=== PATIENT | male | born 1970 | race Caucasian/White ===

== ENCOUNTER 2018-02-19 11:23 | Inpatient (IN) | payer BC, OTHER ==
[2018-02-19 12:06] LABS: Absolute Lymphocytes (CBC) 0.4 K/uL (0.7-4.9); Absolute Monocytes 0.4 K/uL (0.1-1.3); Absolute Neutrophil 3.2 K/uL (1.8-8.0); Basophils % 0.9 % (0-1.3); Hematocrit 47.9 % (39.6-49.0); MCH 31.9 pg (27.0-35.0); MCV 90.4 fL (80-100); Monocytes % 9.9 % (3.3-12.3); RBC Red Blood Cell Count 5.29 M/uL (4.33-5.43)
[2018-02-19] MEDS ORDERED: MORPHINE 4 MG/ML SYR ONE (12:08)
[2018-02-19 12:28] LABS: BUN Blood Urea Nitrogen 19 mg/dL (7-18); Bicarbonate 30 mmol/L (21-32); Glucose Level 101 mg/dL (74-106); NT PRO-BNP 43 pg/mL (<125); Potassium 4.5 mmol/L (3.5-5.1); Protime INR 0.96; Sodium Level 138 mmol/L (136-145); Troponin (Emerg Dept Use Only) < 0.02 ng/mL (0.0-0.045)
--- NOTE | 2018-02-19 12:41 | RAD REPORT ---
EXAM DESCRIPTION: Jose Robertot Single View02/19/2018 12:20 pm CLINICAL HISTORY: Chest pain COMPARISON: 2011 FINDINGS: Area of scarring is present within the mid right lung. The lungs appear clear of acute infiltrate. The heart is normal size IMPRESSION: No acute abnormalities displayed
--- NOTE | 2018-02-19 13:10 | RAD REPORT ---
EXAM DESCRIPTION: CT - Angio Aorta For Dissection - 02/19/2018 12:45 pm CLINICAL HISTORY: Left-sided chest pain COMPARISON: Chest films same date TECHNIQUE: Dynamically enhanced 3 mm thick images of the chest, abdomen, and upper pelvis were obtai christy during administration of approximately 150mL Isovue 370 IV contrast. Sagittal and coronal reconst ruction images were generated using MIP and reviewed. Exam utilizes a protocol to evaluate entire cou rse of the aorta. All CT scans are performed using dose optimization technique as appropriate and may include automated exposure control or mA/KV adjustment according to patient size. FINDINGS: Aorta is normal in diameter with no dissection or other acute aortic findings. Reconstruct ion images show no significant findings. Pulmonary arteries are normal as well. No cardiomegaly, pericardial thickening or pericardial effusio n. In the central portion of the left upper lobe there is a 2.5 centimeter area of spiculated parenchyma with stranding extending to the left hilum and to the left side mediastinal pleura where there is te nting present. Spiculated parenchyma extends inferiorly towards the lingula with continued tenting al lily the left-side mediastinal pleura. Patient has several areas of smaller irregular or spiculated pa renchyma in the inferior aspect of the left lower lobe. Right lower lobe is clear. There is a 3 centi meter x 1.5 centimeter area of irregular parenchyma radiating from the hilum into the right middle lo be along the fissure. Several areas of similar irregular or spiculated parenchyma seen along the manuela r fissure in the right upper lobe. These extend towards the right hilum. No pleural thickening, pleur al effusion or pneumothorax. Irregular soft tissue is seen surrounding the right hilar vascular and bronchial structures. This sof t tissue extends into the mediastinum. There is a 4.1 x 2.7 centimeter subcarinal soft tissue mass. M ultiple 10-18 millimeter lymph nodes are seen in the AP window and retrocaval-pretracheal space. Ther e are abnormal lymph nodes extending superiorly from the left hilum along the left lateral margin of the aorta. The liver, spleen, pancreas, gallbladder, kidneys and adrenal glands show no suspicious findings. No biliary tree dilatation. Celiac, SMA and renal arteries show no suspicious findings. Several small lymph nodes are present ken ng the gastrohepatic ligament and a few small periaortic/ pericaval lymph nodes seen. A few small per ipancreatic lymph nodes are present. These are all nonspecific. No free air, free fluid or inflammato ry stranding. No urinary bladder abnormality. Prostate gland and seminal vesicles are normal. The pa tient has a normal variant duplicated IVC below the renal vasculature. No acute bone finding. IMPRESSION: Negative CT scan of the aorta. Patient has an unusual presentation of multiple spiculated soft tissue masses scattered throughout mu ltiple lobes as well as abnormal mediastinal and hilar mass/ lymphadenopathy. A few small lymph nodes are seen in the gastrohepatic ligament region, peripancreatic region and tanja g the aorta. These are less conspicuous than the chest findings that are nonspecific. Chest findings are unusual in presentation. Findings could reflect an unusual or atypical pneumonia p resentation with reactive lymphadenopathy. The possibility of a multifocal malignant process with abn ormal mediastinal lymphadenopathy would be a consideration even at the patient's relatively young age .
--- NOTE | 2018-02-19 13:51 | ER ---
Nurse's Notes [facility] Name: Percy Dorsey Age: 48 yrs Sex: Male : 1970 Arrival Date: 02/19/2018 Time: 11:25 Bed 27 Private MD: Diagnosis: Chest pain, unspecified Presentation: 02/19 11:34 Presenting complaint: Patient states: Sudden onset of L sided chest pain while sitting ph in traffic yesterday, reports that pain lessened slightly overnight but was still there this morning, describes as constant, sharp, stabbing, radiates to back. Also reports nausea, dizziness, numbness to natan hands and L side of face, denies SOB or palpitations. Transition of care: patient was not received from another setting of care. Onset of symptoms was February 19, 2018. Risk Assessment: Do you want to hurt yourself or someone else? Patient reports no desire to harm self or others. Initial Sepsis Screen: Does the patient meet any 2 criteria? No. Patient's initial sepsis screen is negative. Does the patient have a suspected source of infection? No. Patient's initial sepsis screen is negative. Care prior to arrival: None. 11:34 Method Of Arrival: Ambulatory ph 11:34 Acuity: GIACOMO 3 ph Historical: - Allergies: 11:37 PENICILLINS; ph 11:37 Latex, Natural Rubber; ph - PMHx: 11:37 Hypertension; ph - Immunization history:: Adult Immunizations up to date. - Family history:: not pertinent. - Social history:: Smoking status: Patient/guardian denies using tobacco. - Ebola Screening: : No symptoms or risks identified at this time. - Hospitalizations: : No recent hospitalization is reported. Screenin:45 Abuse screen: Denies threats or abuse. Denies injuries from another. Nutritional ed1 screening: No deficits noted. Tuberculosis screening: No symptoms or risk factors identified. Fall Risk None identified. Assessment: 11:45 General: Appears uncomfortable, Behavior is calm, cooperative. Pain: Complains of pain ed1 in chest Pain radiates to left shoulder Pain currently is 6 out of 10 on a pain scale. Quality of pain is described as sharp, Pain began 1 day ago. Is continuous. Neuro: Level of Consciousness is awake, alert, obeys commands, Oriented to person, place, time, situation, Reports numbness in right hand Denies weakness blurred vision dizziness, headache. Cardiovascular: Reports chest pain, Heart tones S1 S2 present. Respiratory: Airway is patent Respiratory effort is even, unlabored, Respiratory pattern is regular, symmetrical, Breath sounds are clear bilaterally. GI: Patient currently denies diarrhea, nausea, vomiting. : No signs and/or symptoms were reported regarding the genitourinary system. EENT: No signs and/or symptoms were reported regarding the EENT system. Derm: Skin is intact, is healthy with good turgor, Skin is dry, Skin is normal, Skin temperature is warm. Musculoskeletal: Circulation, motion, and sensation intact. Capillary refill < 3 seconds, in bilateral fingers. Range of motion: intact in all extremities, Swelling absent. 11:47 General: I agree with above assessment by Marla Lagos LVN. ph 12:53 Reassessment: Patient appears in no apparent distress at this time. Patient and/or ed1 family updated on plan of care and expected duration. Pain level reassessed. Patient is alert, oriented x 3, equal unlabored respirations, skin warm/dry/pink. Patient states symptoms have not improved. Pain: Complains of pain in chest. 13:06 Reassessment: Pt reports coldness and purple coloring to finger tips. Dr. St ed1 notified. No new orders received. Cardiovascular: Capillary refill < 3 seconds in bilateral fingers Clubbing of nail beds is absent Patient's skin is warm and dry. 13:42 Reassessment: No changes from previously documented assessment. Patient and/or family ed1 updated on plan of care and expected duration. Pain level reassessed. Patient is alert, oriented x 3, equal unlabored respirations, skin warm/dry/pink. Patient states symptoms have not improved. 14:26 Reassessment: Pt reports anxiety. Pt states "I am just nervous about what the doctor ed1 told me. Do you think I can get something for that?" Dr. St notified. No orders received at this time. Vital Signs: 11:38 BP 168 / 103; Pulse 95; Resp 16; Temp 98.4; Pulse Ox 99% on R/A; ph 12:53 BP 133 / 97; Pulse 81; Resp 13; Pulse Ox 100% on R/A; Pain 6/10; ed1 13:42 BP 146 / 82; Pulse 68; Resp 14; Temp 98.1(O); Pulse Ox 99% on R/A; Pain 6/10; ed1 14:28 BP 144 / 85; Pulse 75; Resp 16; Pulse Ox 100% on R/A; Pain 6/10; ed1 15:30 BP 128 / 87; Pulse 80; Resp 18; Pulse Ox 100% on R/A; mg2 ED Course: 11:25 Patient arrived in ED. ph 11:[address] MD is Attending Physician. rn 11:37 Triage completed. ph 11:38 Arm band placed on Patient placed in an exam room, on a stretcher, in view of staff ph members, on surveillance system monitor, on pulse oximetry. 11:45 Paradise Lagos LVN is Primary Nurse. ed1 11:45 Patient has correct armband on for positive identification. Placed in gown. Bed in low ed1 position. Call light in reach. Side rails up X 1. secured entrance monitor on. Pulse ox on. NIBP on. Warm blanket given. 11:47 EKG done, by field map technician. reviewed by Messi St MD. at1 12:01 Initial lab(s) drawn, by mn, sent to lab. Inserted saline lock: 20 gauge in right ed1 antecubital area, using aseptic technique. Blood collected. 12:19 X-ray completed. Portable x-ray completed in exam room. Patient tolerated procedure ag1 well. 12:19 XRAY Chest (1 view) In Process Unspecified. EDMS 12:48 CT Aorta for Dissection In Process Unspecified. EDMS 13:50 Gary Lombardi MD is Hospitalizing Provider. rn 14:28 Appears restless. Awaiting bed assignment. ed1 15:39 No provider procedures requiring assistance completed. Patient admitted, IV remains in mg2 place. Administered Medications: 12:02 Drug: morphine 4 mg Route: IVP; Site: right antecubital; ph 13:44 Follow up: Response: No adverse reaction; Pain is unchanged, physician notified ed1 14:02 Drug: LevaQUIN 750 mg Route: PO; ed1 14:26 Follow up: Response: No adverse reaction ed1 Outcome: 13:51 Decision to Hospitalize by Provider. rn 15:39 Admitted to Tele accompanied by tech, via wheelchair, room 430, with chart. mg2 15:39 Condition: stable 15:39 Instructed on the need for admit, Demonstrated understanding of follow-up care. 15:40 Patient left the ED. mg2 Signatures: Dispatcher [employer] EDMS Messi St MD MD rn Paradise Lagos, CLOCK REPAIR TECHNICIAN CLOCK REPAIR TECHNICIAN ed1 Vannesa Gray, paper wood cutter EKG Tat1 Eileen Tobar RN RN Sophie Valente ag1 Klever Carey RN RN mg2
--- NOTE | 2018-02-19 13:51 | EDPHYS ---
Physician Documentation [facility] Name: Percy Dorsey Age: 48 yrs Sex: Male : 1970 Arrival Date: 02/19/2018 Time: 11:25 Bed 27 Private MD: ED Physician Messi St HPI: 02/19 12:22 This 48 yrs old Male presents to ER via Ambulatory with complaints of Chest rn Pain > 30 y/o. 12:22 The patient or guardian reports chest pain that is located primarily in the substernal rn area. Onset: last night. The pain radiates to back. Associated signs and symptoms: Pertinent positives: None. Pertinent negatives: abdominal pain, cough, dizziness, headache, lightheadedness, near syncope, palpitations, recent travel, shortness of breath, syncope, vomiting. The chest pain is described as sharp, stabbing. Duration: The patient or guardian reports multiple episodes, that are intermittent. Modifying factors: The symptoms are alleviated by nothing. the symptoms are aggravated by nothing. Severity of pain: At its worst the pain was moderate in the emergency department the pain has improved. The patient has not experienced similar symptoms in the past. The patient has not recently seen a physician. Began while driving yesterday, got better overnight, returned today, also noticed tips of fingers on both hands turning bluish, now resolved. . Historical: - Allergies: 11:37 PENICILLINS; ph 11:37 Latex, Natural Rubber; ph - PMHx: 11:37 Hypertension; ph - Immunization history:: Adult Immunizations up to date. - Family history:: not pertinent. - Social history:: Smoking status: Patient/guardian denies using tobacco. - Ebola Screening: : No symptoms or risks identified at this time. - Hospitalizations: : No recent hospitalization is reported. ROS: 12:22 Constitutional: Negative for fever, chills, and weight loss, Eyes: Negative for injury, rn pain, redness, and discharge, Cardiovascular: Negative for palpitations, and edema, Respiratory: Negative for shortness of breath, cough, wheezing Abdomen/GI: Negative for abdominal pain, nausea, vomiting, diarrhea, and constipation, MS/Extremity: Negative for injury and deformity, Skin: Negative for injury, rash, and discoloration, Neuro: Negative for headache, weakness, numbness, tingling, and seizure. Exam: 12:22 Constitutional: This is a well developed, well nourished patient who is awake, alert, rn appears anxious Head/Face: Normocephalic, atraumatic. Eyes: Pupils equal round and reactive to light, extra-ocular motions intact. Lids and lashes normal. Conjunctiva and sclera are non-icteric and not injected. Cornea within normal limits. Periorbital areas with no swelling, redness, or edema. Cardiovascular: Regular rate and rhythm, No pulse deficits. Respiratory: Lungs have equal breath sounds bilaterally, clear to auscultation, No increased work of breathing, no retractions or nasal flaring. Abdomen/GI: soft, non-tender MS/ Extremity: Pulses equal, no cyanosis. Neurovascular intact. Full, normal range of motion. Equal circumference. Neuro: Awake and alert, GCS 15, oriented to person, place, time, and situation. Cranial nerves II-XII grossly intact. Motor strength 5/5 in all extremities. Sensory grossly intact. Vital Signs: 11:38 BP 168 / 103; Pulse 95; Resp 16; Temp 98.4; Pulse Ox 99% on R/A; ph 12:53 BP 133 / 97; Pulse 81; Resp 13; Pulse Ox 100% on R/A; Pain 6/10; ed1 13:42 BP 146 / 82; Pulse 68; Resp 14; Temp 98.1(O); Pulse Ox 99% on R/A; Pain 6/10; ed1 14:28 BP 144 / 85; Pulse 75; Resp 16; Pulse Ox 100% on R/A; Pain 6/10; ed1 15:30 BP 128 / 87; Pulse 80; Resp 18; Pulse Ox 100% on R/A; mg2 MDM: 11:32 Patient medically screened. rn 13:47 Differential diagnosis: anxiety, coronary artery disease chest wall pain, rn gastroesophageal reflux disease (GERD), pericarditis, pleurisy, pneumothorax, thoracic aortic disection. Data reviewed: vital signs, nurses notes, lab test result(s), EKG, radiologic studies, CT scan, plain films. 13:50 Admission orders: after a detailed discussion of the patient's condition and case, the brazing furnace feeder orders are written by me. ED course: Admitted to Dr. Lombardi for chest pain and abnormal CT chest findings. . 13:50 Counseling: I had a detailed discussion with the patient and/or guardian regarding: the rn historical points, exam findings, and any diagnostic results supporting the discharge/admit diagnosis, lab results, radiology results, the need for further work-up and treatment in the hospital. 02/19 11:38 Order name: Basic Metabolic Panel; Complete Time: 12:34 rn 02/19 11:38 Order name: CBC with Diff; Complete Time: 12:22 rn 02/19 11:38 Order name: NT PRO-BNP; Complete Time: 12:34 rn 02/19 11:38 Order name: PT-INR; Complete Time: 12:34 rn 02/19 11:38 Order name: Troponin (emerg Dept Use Only); Complete Time: 12:34 rn 02/19 11:38 Order name: D-Dimer; Complete Time: 12:34 rn 02/19 11:38 Order name: XRAY Chest (1 view); Complete Time: 13:20 rn 02/19 12:35 Order name: CT Aorta for Dissection; Complete Time: 13:20 rn 02/19 14:30 Order name: Comprehensive Metabolic Panel [facility] 02/19 14:30 Order name: Comprehensive Metabolic Panel [facility] 02/19 14:30 Order name: Comprehensive Metabolic Panel [facility] 02/19 14:30 Order name: Blood Culture [facility] 02/19 14:30 Order name: Sputum Culture [facility] 02/19 11:38 Order name: EKG; Complete Time: 11:39 rn 02/19 11:38 Order name: Cardiac monitoring; Complete Time: 12:01 02/19 11:38 Order name: EKG - Nurse/Tech; Complete Time: 12:01 rn 02/19 11:38 Order name: IV Saline Lock; Complete Time: 12:01 rn 02/19 11:38 Order name: Labs collected and sent; Complete Time: 12:01 rn 02/19 11:38 Order name: O2 Per Protocol; Complete Time: 11:45 rn 02/19 11:38 Order name: O2 Sat Monitoring; Complete Time: 11:45 rn 02/19 14:31 Order name: CONS Physician Consult [facility] 02/19 14:31 Order name: Regular EDMS Administered Medications: 12:02 Drug: morphine 4 mg Route: IVP; Site: right antecubital; ph 13:44 Follow up: Response: No adverse reaction; Pain is unchanged, physician notified ed1 14:02 Drug: LevaQUIN 750 mg Route: PO; ed1 14:26 Follow up: Response: No adverse reaction ed1 Disposition: 02/19/18 13:51 Hospitalization ordered by Gary Lombardi for Inpatient Admission. Preliminary diagnosis is Chest pain, unspecified. - Bed requested for Telemetry/MedSurg (Inpatient). - Status is Inpatient Admission. mg2 - Condition is Stable. - Problem is new. - Symptoms have improved. UTI on Admission? No Signatures: Dispatcher [employer] EDMS Galina Stanley RN RN dw Messi St MD MD rn Yolis, Paradise, DOOR TO DOOR FUNDRAISING COLLECTOR DOOR TO DOOR FUNDRAISING COLLECTOR ed1 Eileen Tobar RN MARK Klever Carey RN RN [facility] [place], Janna lt1 Corrections: (The following items were deleted from the chart) 14:49 13:51 Hospitalization Ordered by Gary Lombardi MD for Inpatient Admission. Preliminary dw diagnosis is Chest pain, unspecified. Bed requested for Telemetry/MedSurg (Inpatient). Status is Inpatient Admission. Condition is Stable. Problem is new. Symptoms have improved. UTI on Admission? No. rn 15:02 14:49 02/19/2018 13:51 Hospitalization Ordered by Gary Lombardi MD for Inpatient ed1 Admission. Preliminary diagnosis is Chest pain, unspecified. Bed requested for Telemetry/MedSurg (Inpatient). Status is Inpatient Admission. Condition is Stable. Problem is new. Symptoms have improved. UTI on Admission? No. dw 15:29 15:02 02/19/2018 13:51 Hospitalization Ordered by Gary Lombardi MD for Inpatient lt1 Admission. Preliminary diagnosis is Chest pain, unspecified. Bed requested for Telemetry/MedSurg (Inpatient). Status is Inpatient Admission. Condition is Stable. Problem is new. Symptoms have improved. UTI on Admission? No. ed1 15:40 15:29 02/19/2018 13:51 Hospitalization Ordered by Gary Lombardi MD for Inpatient mg2 Admission. Preliminary diagnosis is Chest pain, unspecified. Bed requested for Telemetry/MedSurg (Inpatient). Status is Inpatient Admission. Condition is Stable. Problem is new. Symptoms have improved. UTI on Admission? No. lt1
[2018-02-19] MEDS ORDERED: levoFLOXacin 750 MG TAB ONE (14:09)
[2018-02-19] MEDS ORDERED: ONDANSETRON 4 MG/2 ML VIAL IV PRN (14:24)
[2018-02-19] MEDS ORDERED: IPRATROPIUM BROM 0.5MG/2.5ML NEB PRN (14:24)
[2018-02-19] MEDS ORDERED: ALBUTEROL 2.5 MG/3 ML NEB SOL NEB PRN (14:24)
[2018-02-19] MEDS ORDERED: Levofloxacin 750mg IV 750 MG/150 ML BAG IV SCH (15:00)
[2018-02-19] MEDS: ACETAMINOPHEN 500 MG TAB PO PRN (15:34)
[2018-02-19] MEDS ORDERED: ACETAMINOPHEN 500 MG TAB ONE (15:36)
[2018-02-19] MEDS: NA CHLORIDE 0.9% 1,000 ML IV SCH (16:12)
[2018-02-19 16:25] VITALS: BMI 24.0
--- NOTE | 2018-02-19 17:47 | EKG ---
Test Date: 2018-02-19 Test Time: 11:47:02 Pyrotechnics Press Tender: CHUCK MEASUREMENT RESULTS: Intervals: Rate: 75 NJ: 176 QRSD: 122 QT: 392 QTc: 437 [place]: P: 60 NJ: 176 QRS: 91 T: 87 INTERPRETIVE STATEMENTS: Sinus rhythm with occasional premature ventricular complexes Nonspecific intraventricular conduction delay ST abnormality, possible digitalis effect Abnormal ECG Compared to ECG 09/05/2010 11:27:02 Ventricular premature complex(es) now present Intraventricular conduction delay now present ST (T wave) deviation now present Electronically Signed On 02-19-18 17:46:26 FITTER TYPE BAR AND SEGMENT by Georgi Garsia
[2018-02-19] MEDS: clonazePAM 0.5 MG TAB PO PRN (18:10)
[2018-02-19] MEDS ORDERED: TRAMADOL HCL 50 MG TAB PO PRN (19:18)
[2018-02-19] MEDS: TAMSULOSIN 0.4 MG SR CAP PO SCH (20:00)
[2018-02-19] MEDS: ZOLPIDEM TARTRATE 10 MG TABLET PO SCH (22:10)
[2018-02-20] MEDS: NA CHLORIDE 0.9% 1,000 ML IV SCH (01:00)
--- NOTE | 2018-02-20 04:07 | HP ---
Date of Admission: 02/19/2018 Primary Care Physician: Federico Urias D.O. Chief Complaint: Chest pain. History Of Present Illness: The patient is a 48-year-old male with past medical history of rheumatoi d arthritis, hypertension, benign prostatic hyperplasia, and previous exposure to mold and chemicals from his occupation. He comes in with sudden onset of chest tightness which was substernal, associat ed with some numbness on his right arm. Denies any shortness of breath, nausea, vomiting, fever, chi lls, cough, or sputum production. The patient's pain occurred while he was driving in traffic in [facility]. The patient took some Rolaids; however, it did not improve his symptoms. The patient got home and was able to fall asleep. However, on the day of admission, had worsening pain. Theref ore, he came in to the hospital for further evaluation. The patient's symptoms were constant, modera te, progressively worsening. Upon arrival, the patient's blood pressure was extremely high. Blood p ressure was elevated at 168/103. The patient's initial workup showed negative cardiac enzymes. EKG did not show any specific changes. No ST elevation. Due to the concern for his chest pain radiating to the back, CT angio chest was done to rule out aortic dissection. On the CT scan, there was no ao rtic dissection. However, he did have multiple spiculated soft tissue masses scattered throughout th e multiple lobes, and he also had abnormal mediastinal and hilar mass lymphadenopathy. There were di ffuse small lymph nodes seen in the gastrohepatic ligament region, peripancreatic region, and along t he aorta, which were less conspicuous in the chest findings that are nonspecific. This may be relate d to atypical pneumonia versus reactive lymphadenopathy. However, possibility of multifocal malignan t process would be a consideration. The patient was then referred for admission. When seen in the E R, the patient was awake, alert, and oriented x3. Still complaining of some pain with deep breath, f eeling anxious, asking for something for anxiety. Past Medical History: Hypertension, BPH, and rheumatoid arthritis. Surgeries: Knee surgery x7 on the right. Allergies: TO LATEX; AND CHART SHOWS ALLERGY TO PENICILLIN, UNKNOWN REACTION. Medications: List reviewed. Social History: The patient denies any alcohol use. Does smoke occasionally. Has been a heavy smok er in the past, then did not smoke for a long time. Smokes 1 cigarette every now and then. Not a re gular smoker anymore. 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 Family History: Father has hypertension and colon cancer. Mother has hypertension and ovarian cance r. Grandfather has prostate cancer. Review of Systems: An 11-point system reviewed, negative except as per HPI. Physical Examination: Vital Signs: Temperature 98.4, heart rate 95, blood pressure 168/103, respirations 16, and O2 of 99% on room air. General: Awake, alert, and oriented x3. Some mild distress due to pain. Ill-appearing male, anxiou s. HEENT: Normocephalic, atraumatic. PERRLA. EOMI. Moist mucous membranes. Oropharynx is clear. Co njunctivae are anicteric. Neck: Supple. No JVD. Trachea midline. CV: S1, S2. Regular rate and rhythm. Peripheral pulses present. No murmurs. Respiratory: Moving air well bilaterally. No wheezing or stridor. No use of accessory muscles. Gastrointestinal: Abdomen is soft, nontender, nondistended. Positive bowel sounds. No guarding or rigidity. Extremities: No clubbing, cyanosis, or edema. No calf tenderness. Neurologic: Cranial nerves 2 through 12 intact grossly. No focal neurological deficit. Speech is n ormal. Skin: No rashes. Normal skin turgor. Psychiatric: Mood is anxious. Affect is congruent with mood. Insight and judgment are good. Laboratory Data: INR 0.96. D-dimer 480. Sodium 138, potassium 4.5, chloride 104, CO2 of 30, BUN 19 , creatinine 1.2, glucose 101, calcium 8.9. Troponin less than 0.02. ProBNP 43. WBC 4.2, H and H 1 6.9 and 47.9, platelets 219, and neutrophils 77.2%. CT dissection shows unusual presentation of mult iple spiculated soft tissue masses scattered throughout multiple lobes. Abnormal mediastinal and hil ar mass, lymphadenopathy. Small lymph nodes in the gastrohepatic ligament region, peripancreatic reg ion, and along the aorta. May be from atypical pneumonia or reactive lymphadenopathy. Possible morales gnant process. Chest x-ray, personally reviewed, shows no infiltrates. Heart normal size. Assessment And Plan: A 48-year-old male with; 1.Atypical chest pain, likely pleuritic chest pain. Initial cardiac enzymes are negative. We will repeat subsequent troponin level. Doubt that this is cardiac in nature. 2.Incidental finding of multiple spiculated masses in the lung may be reactive to atypical pneumonia versus malignancy or possibly from occupational exposure. We will consult Pulmonology. As these ar e too small for biopsy, may need bronchoscopy. The patient denies any weight loss or hemoptysis. We will continue to monitor. 3.Essential hypertension, uncontrolled. We will adjust medications and resume home medications. Us e IV p.r.n. for greater than 160 systolic. 4.Rheumatoid arthritis. 5.Benign prostatic hyperplasia, on tamsulosin. 6.Gastrointestinal and deep venous thrombosis prophylaxis with PPI and SCDs. No chemical anticoagul ation in case the patient needs procedure in a.m. We will encourage ambulation. 7.Nicotine dependence with cigarette smoking. Counseled. Plan: Admit the patient to Med-Surg, place as inpatient. Length of stay greater than 2 midnights. MARTIN Voice ID: [id number]
[2018-02-20 04:54] LABS: Absolute Lymphocytes (CBC) 0.4 K/uL (0.7-4.9); Absolute Monocytes 0.4 K/uL (0.1-1.3); Absolute Neutrophil 2.5 K/uL (1.8-8.0); Basophils % 0.9 % (0-1.3); Eosinophils % 5.7 % (0-4.4); Hematocrit 44.4 % (39.6-49.0); Lymphocytes % 11.3 % (15.3-44.8); MCH 31.8 pg (27.0-35.0); MCV 90.8 fL (80-100); MPV 9.1 fL (7.6-11.3); Monocytes % 12.1 % (3.3-12.3); RBC Red Blood Cell Count 4.89 M/uL (4.33-5.43)
[2018-02-20 05:02] LABS: Albumin 3.4 g/dL (3.4-5.0); Bilirubin Total 0.4 mg/dL (0.2-1.0); Potassium 4.2 mmol/L (3.5-5.1); Protein, Total 6.3 g/dL (6.4-8.2)
--- NOTE | 2018-02-20 07:57 | P.CNS ---
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 Allergies latex Allergy (Verified 02/09/12 16:59) UNK Home Medications: Lisinopril [Prinivil*] 20 mg PO DAILY 02/09/12 Zolpidem Tartrate [Ambien*] 10 mg PO BEDTIME #30 tablet 02/16/12 Tamsulosin [Flomax] 0.4 mg PO BEDTIME 02/19/18 - Past Medical/Surgical History Diabetic: No -: RA -: HTN -: Prostate -: 7 knee sx - Social History Smoking Status: Current every day smoker Alcohol use: No CD- Drugs: No Caffeine use: Yes Place of Residence: Home Review of Systems Weight loss General: Weakness Cardiovascular: Chest Pain Physical Examination Temp Pulse Resp BP Pulse Ox 97.2 F 65 20 100/52 L 95 02/20/18 04:00 02/20/18 04:00 02/20/18 04:00 02/20/18 04:00 02/20/18 04:00 General: Alert, Oriented x3 HEENT: Atraumatic Neck: Supple Respiratory: Clear to auscultation bilaterally Cardiovascular: No edema, Regular rate/rhythm Gastrointestinal: Normal bowel sounds, Soft and benign Musculoskeletal: No clubbing, No swelling Integumentary: No rashes, No breakdown Laboratory Data (last 24 hrs) 02/19/18 11:53: PT 11.3, INR 0.96 02/19/18 11:53: WBC 4.2 L, Hgb 16.9, Hct 47.9, Plt Count 219 02/19/18 11:53: Sodium 138, Potassium 4.5, BUN 19 H, Creatinine 1.20, Glucose 101 - Problems (1) Abnormal CT scan of lung Current Visit: Yes Status: Acute Plan: Patient is 48 years of age admitted with left-sided chest pain over and a CT scan he was found to have upper low-fiber cavitary changes with mediastinal adenopathy no prior history of pulmonary complaints quite possible that he has sarcoidosis was no evidence of dissection he will require a mediastinal biopsy in view of his recent weight loss chemistries reviewed unremarkable I have ordered a thyroid function test ESR (2) Chest pain Current Visit: Yes Status: Acute Plan: Patient is 48 years of age admitted with left-sided chest discomfort atypical he will need a cardiac evaluation possibly a stress test troponins negative EKG no significant changes for ischemia Qualifiers: Chest pain type: chest pain on breathing Qualified Code(s): R07.1 - Chest pain on breathing; R07.81 - Pleurodynia
[2018-02-20] MEDS ORDERED: REGADENOSON 0.4 MG/5 ML SYR IV ONE (09:08)
--- NOTE | 2018-02-20 09:25 | CON ---
Chief Complaint: Chest pain. History Of Present Illness: Mr. Dorsey was driving home from work, developed pain in the left pecto ral region. It is worse with inspiration. There was numbness in his fingers of his left hand, espec ially the ring finger, but all of them at least somewhat. He went on to lay down, took some Tums, wo ke up, felt slightly better, but the pain was not gone, so he came to the ER, so he had had several h ours of chest pain by the time he got here. When he arrived, his chest x-ray looked abnormal with sc arring. The CT angio of the chest was done to rule out PE. There was no evidence of PE. There appe ared to be lymph nodes and spiculated masses in right lung. He does not have exertional intolerance. He has never had myocardial infarction or stroke. Medications: His outpatient medications were lisinopril, zolpidem, and Flomax. He is treated for hy pertension. Social History: He uses tobacco, sometimes heavy, sometimes 0-2 cigarettes per day. More recently, he is trying very hard to quit. His last cigarette was 2 days before admission. Review of Systems: Reveals 100 pounds weight loss over the last year. That weight loss to make an attempt to get differ ent clothing. Physical Examination: General: He appears to be his stated age of 48, 5 feet 6 inches, 149 pounds. HEENT: Normal. Lungs: Clear. No wheezes or crackles. Heart: Exam within normal limits. Abdomen: Soft. Extremities: Normal distal pulses. No cyanosis, clubbing, or edema. Laboratory Data: Reveals troponins are all less than 0.02. N-terminal proBNP is 43, well within nor mal range. Blood sugars 101 and 95. Complete blood count reveals a kind of a low white blood cell c ount. Normal hemoglobin, hematocrit, platelet count. Impression: The patient's chest pain is somewhat pleuritic sounded. I do not really think it is uns table angina. I have recommended that he stop smoking. We will do a pharmacologic nuclear stress ec ho today. Dr. Bullock has stated in his report he has a need for a mediastinal biopsy, probably a palma prasternal approach in a [facility], not something we would do here at [facility]. So ivy maciel, we will try to do the test, make sure his heart is stable enough for doing all that. I suspect th e chest pain he had was not related to an acute coronary syndrome. ANITA/MCKENNA Voice ID: [id number] Report ID: [id number]
[2018-02-20] MEDS: LISINOPRIL 20 MG TAB PO SCH (10:31)
--- NOTE | 2018-02-20 11:21 | ECHO ---
HEIGHT: 5 ft 6 in WEIGHT: 149 lb 0 oz DATE OF STUDY: 02/20/[address]: Georgi Garsia MD 2-DIMENSIONAL: YES M.MODE: YES DOPPLER: YES COLOR FLOW: YES TDS: NO PORTABLE: NO DEFINITY: NO BUBBLE STUDY: NO DIAGNOSIS: CHEST PAIN CARDIAC HISTORY: CATHERIZATION: NO SURGERY: NO PROSTHETIC VALVE: NO PACEMAKER: NO MEASUREMENTS (cm) DIASTOLIC (NORMALS) SYSTOLIC (NORMALS) IVSd 1.0 (0.6-1.2) LA Diam 2.8 (1.9-4.0) LVEF 58% LVIDd 5.1 (3.5-5.7) LVIDs 3.5 (2.0-3.5) %FS 31% LVPWd 1.0 (0.6-1.2) Ao Diam 2.9 (2.0-3.7) 2 DIMENSIONAL ASSESSMENT: RIGHT ATRIUM: NORMAL LEFT ATRIUM: NORMAL RIGHT VENTRICLE: NORMAL LEFT VENTRICLE: NORMAL TRICUSPID VALVE: NORMAL MITRAL VALVE: NORMAL PULMONIC VALVE: NORMAL AORTIC VALVE: NORMAL PERICARDIAL EFFUSION: NONE AORTIC ROOT: NORMAL LEFT VENTRICULAR WALL MOTION: NORMAL DOPPLER/COLOR FLOW: NORMAL COMMENTS: NORMAL 2D ECHOCARDIOGRAM WITH DOPPLER. TECHNOLOGIST: David SCHAFFER
--- NOTE | 2018-02-20 13:38 | TREADPHA ---
DX: CHEST PAIN Date of Study: 02/20/18 Ht: 5 6 Wt: 149 lb 0 oz Consulting Physician: YENI MEDICATIONS: TYLENOL, PRINIVIL, PROVENTIL, KLONOPIN, AMBIEN HISTORY: 48 YEAR OLD MALE WITH COMPLAINTS OF CHEST PAIN. MEDICAL HISTORY HYPERTENSION AND SMOKER PHYSICIAL EXAMINATION: RESTING B.P.: 111/67 RESTING H.R.: 70 RESTING EKG: LEFT VENTRICULAR HYPERTROPHY WITH QRS WIDENING AND REPOLARIZATION ABNORMALITY. PROTOCOL: LEXISCAN EXERCISE TIME: 3:30 B.P. AT PEAK STRESS: 101/72 IMPRESSION: LEXISCAN INJECTED, CARDIOLITE INJECTED PER PROTOCOL. SEE NUCLEAR MEDICINE REPORT. NO SUPRA VENTRICULAR TACHYCARDIA, NO VENTRICULAR TACHYCARDIA. PREMATURE VENTRICULAR COMPELXES FREQUENT PRE TEST. OCCASIONAL PREMATURE VENTRICULAR COMPLEXES POST. NON DIAGNOSTIC EKG WITH LEXISCAN STRESS.
--- NOTE | 2018-02-20 13:49 | RAD REPORT ---
EXAM DESCRIPTION: NM - Rest Stress Cardiac Imaging - 02/20/2018 1:41 pm CLINICAL HISTORY: CP Chest pain. COMPARISON: No comparisons TECHNIQUE: The patient was administered approximately 10mCi of Tc 99m Sestamibi prior to resting SPE CT imaging of the heart. The patient was then administered approximately 30 mCi of Tc 99m Sestamibi f ollowing exercise or pharmacologic stress. Multiplanar SPECT images were reviewed. FINDINGS: No stress induced ischemic defect is seen to suggest stress induced ischemia. No fixed def ect is seen to suggest hibernating myocardium or scarred myocardium. The end diastolic volume is 141 ml, the end systolic volume is 95 ml, and the ejection fraction is 33 %. IMPRESSION: No stress induced ischemia.
[2018-02-20] MEDS: ACETAMINOPHEN 500 MG TAB PO PRN (17:39)
[2018-02-20] MEDS: clonazePAM 0.5 MG TAB PO PRN ×2 (18:04→21:50)
--- NOTE | 2018-02-20 19:46 | PN ---
Date of Progress Note: 02/20/2018 Subjective: Patient seen and examined. Chart reviewed and case discussed with RN. The patient stat es his chest pain has improved. Case also discussed with Dr. Euceda. He feels that the patient catherine oden has sarcoidosis. The patient going for a cardiac stress test this afternoon. Medications: List reviewed. Physical Examination: Vital Signs: Temperature 98.7, heart rate 88, blood pressure 113/61, respirations 18, O2 99% on room air. General: Awake, alert, oriented x3, in some mild distress. Ill-appearing male. CV: S1, S2. Regular rate and rhythm. No murmurs. Peripheral pulses present. Respiratory: Moving air well bilaterally. No wheezing or stridor. Gastrointestinal: Abdomen is soft, nontender, nondistended. Positive bowel sounds. Extremities: No clubbing, cyanosis, or edema. Neuro: Nonfocal. Laboratory Data: Sodium 138, potassium 4.2, chloride 104, CO2 29, BUN 15, creatinine 1.2, glucose 95 , calcium 8.4, AST 12, ALT 23. Troponin less than 0.02 x 2. TSH 3.4. WBC 3.6, hemoglobin and hemat ocrit 15.5 and 44.4, platelets 189, neutrophils 70%. Blood cultures no growth to date. Sputum cultu res pending. Echocardiogram shows EF of 58%. Normal 2D echo. Cardiac stress test shows no stress-i nduced ischemia. Pharmacological stress test nondiagnostic. Assessment: A 48-year-old male with: 1.Pleuritic chest pain. Cardiac pain ruled out. Cardiac stress test is negative. Echocardiogram s hows normal left ventricular ejection fraction 58%. Troponin levels negative. 2.Sarcoidosis. CT shows multiple spiculated masses. We will need mediastinal biopsy as an outpatie nt. Appreciate Dr. Euceda's input. 3.Essential hypertension. Not well controlled. Blood pressure is improved from yesterday. We will continue to monitor closely. 4.Rheumatoid arthritis. 5.Benign prostatic hyperplasia, on tamsulosin. 6.Nicotine dependence with cigarette smoking, counseled. 7.Gastrointestinal and deep venous thrombosis prophylaxis with proton pump inhibitors and sequential compression devices and early and persistent ambulation. Plan: Likely discharge in a.m. We will start on a short steroid taper. SA/MODL Voice ID: [id number] Report ID: [id number]
[2018-02-20] MEDS: TAMSULOSIN 0.4 MG SR CAP PO SCH (21:50)
[2018-02-20] MEDS: predniSONE 20 MG TAB PO SCH (21:50)
[2018-02-20] MEDS: ZOLPIDEM TARTRATE 10 MG TABLET PO SCH (21:50)
[2018-02-21 04:25] LABS: Absolute Lymphocytes (CBC) 0.4 K/uL (0.7-4.9); Absolute Monocytes 0.2 K/uL (0.1-1.3); Absolute Neutrophil 4.9 K/uL (1.8-8.0); Basophils % 0.2 % (0-1.3); Eosinophils % 0.9 % (0-4.4); Hematocrit 47.8 % (39.6-49.0); Lymphocytes % 7.5 % (15.3-44.8); MCH 31.3 pg (27.0-35.0); MCV 90.9 fL (80-100); MPV 9.3 fL (7.6-11.3); Monocytes % 2.8 % (3.3-12.3); RBC Red Blood Cell Count 5.26 M/uL (4.33-5.43)
[2018-02-21 04:30] LABS: Albumin 3.7 g/dL (3.4-5.0); Bilirubin Total 0.4 mg/dL (0.2-1.0); Potassium 4.6 mmol/L (3.5-5.1); Protein, Total 6.9 g/dL (6.4-8.2)
[2018-02-21 05:00] LABS: Blood Morphology Comment NOT SEEN (NOT SEEN); Platelet Estimate ADEQ
[2018-02-21] MEDS: LISINOPRIL 20 MG TAB PO SCH (08:26)
[2018-02-21] MEDS: predniSONE 20 MG TAB PO SCH (08:26)
[2018-02-21 08:27] VITALS: BP 100/57
[2018-02-21 08:53] VITALS: TEMP 97.7
[2018-02-21 10:31] VITALS: O2SAT 94
--- NOTE | 2018-02-22 07:11 | DS ---
Date of Discharge: 02/21/2018 Consultants: Dr. Euceda with Pulmonology. Admitting Diagnoses: 1.Atypical chest pain, likely pleuritic. 2.Multiple spiculated masses in the lung. 3.Essential hypertension, uncontrolled. 4.Rheumatoid arthritis. 5.Benign prostatic hypertrophy. 6.Nicotine dependence with cigarette smoking continuous. Discharge Diagnoses: 1.Atypical chest pain, pleuritic in nature, resolved. Cardiac stress test negative. Echocardiogram normal with ejection fraction of 58%. Acute coronary syndrome ruled out. 2.Sarcoidosis. The patient will need mediastinal biopsy as outpatient. Will follow up with Pulmono logy. 3.Essential hypertension, improved. 4.Rheumatoid arthritis. 5.Benign prostatic hypertrophy, on tamsulosin. 6.Nicotine dependence. Cigarette smoking continuous. Counseled. Hospital Course: The patient is a 48-year-old male who comes in with sudden onset of chest pain whic h was pleuritic in nature. The patient did have uncontrolled blood pressure 158/103. Initial workup did not show any EKG changes or elevated troponin. CT angio of the chest was done to rule out aorti c dissection, which was negative. However, he did have multiple spiculated soft tissue masses scatte red throughout multiple lobes and along the lymph nodes. Possibility of malignancy was considered. The patient does have a history of smoking. The patient was seen by a rn liaison, Dr. Euceda. The patient's symptoms and presentation were classic for sarcoidosis. He was started on steroids. T he patient will need a mediastinal biopsy done at tertiary care facility as an outpatient for further diagnostic evaluation. The patient's symptoms improved. He was also seen by Dr. Garsia with Cardio logy. The patient had a cardiac stress test done which was negative. Echocardiogram showed normal E F. The patient's symptoms improved. ACS was ruled out. The patient was then cleared for discharge by consultants. He was then sent home in a stable condition. Activity: As tolerated. Medications: As per medication reconciliation list. Followup: Follow up with primary care physician in 2 to 3 days. Follow up with rn liaison, Dr. Franklin milian, in 2 weeks. Follow up with production control manager in 2 weeks. Return to ER for worsening condition. Physical Examination: Vital signs: Stable. Afebrile. General: Awake, alert, oriented. No acute distress. CV: S1, S2. No murmurs. Respiratory: Moving air well bilaterally. Abdomen: Soft, nontender, nondistended. Positive bowel sounds. Extremities: No clubbing, cyanosis, edema. Neurologic: Nonfocal. Total Time Spent Discharging The Patient: 37 minutes. MARTIN Voice ID: [id number] Report ID: [id number]
== END 2018-02-21 10:49 | disposition home or self-care (01) | DRG 313 ==
LOC: ER 11:23 → ERHOLD 14:27 → 4TH 15:02
PROVIDERS: ADMIT Family Medicine; ATTEND Family Medicine
DX: R07.89 Other chest pain (principal); D86.2 Sarcoidosis of lung with sarcoidosis of lymph nodes; I10 Essential (primary) hypertension; M06.9 Rheumatoid arthritis, unspecified; N40.0 Benign prostatic hyperplasia without lower urinary tract symptoms; F17.210 Nicotine dependence, cigarettes, uncomplicated; Z88.0 Allergy status to penicillin; Z91.040 Latex allergy status; R07.81 Pleurodynia
CPT/HCPCS: 36415; 71045; 71275; 74175; 78452; 80048; 80053; 83880; 84443; 84484; 85025; 85379; 85610; 87040; 87070; 87205; 93005; 93017; 93306; 94760; 96374; 99285; A9500; J2785; J7030; J7512; Q9967

== ENCOUNTER 2019-08-05 14:18 | Observation (INO) | payer BC, SELFPAY ==
[2019-08-05 15:22] LABS: Absolute Lymphocytes (CBC) 0.4 K/uL (0.7-4.9); Basophils % 0.8 % (0-1.3); Hematocrit 48.7 % (39.6-49.0); Lymphocytes % 8.1 % (15.3-44.8); MPV 9.2 fL (7.6-11.3)
[2019-08-05] MEDS ORDERED: NA CHLORIDE 0.9% 1,000 ML ONE (15:22)
[2019-08-05 15:26] LABS: Protime INR 0.93
[2019-08-05 15:36] LABS: Magnesium 2.3 mg/dL (1.8-2.4); Potassium 4.1 mmol/L (3.5-5.1)
--- NOTE | 2019-08-05 15:57 | RAD REPORT ---
EXAM DESCRIPTION: US - UPPER EXTREMITY VENOUS UNILATE - 08/05/2019 3:49 pm CLINICAL HISTORY: prominent veins;Swelling Arm pain and swelling COMPARISON: EXT VENOUS UNI LTD dated 07/08/2010 FINDINGS: Left upper extremity venous system was interrogated with Doppler technique. Normal flow, c ompressibility and augmentation was noted. There is no DVT present. IMPRESSION: No evidence of left upper extremity deep venous thrombosis.
--- NOTE | 2019-08-05 16:16 | RAD REPORT ---
EXAM DESCRIPTION: CT - Head Brain Wo Cont - 08/05/2019 3:57 pm CLINICAL HISTORY: dizziness, speech problem, left arm weakness Headache, drowsiness COMPARISON: No comparisons TECHNIQUE: All CT scans are performed using dose optimization technique as appropriate and may inclu de automated exposure control or mA/KV adjustment according to patient size. FINDINGS: No intracranial hemorrhage, hydrocephalus or extra-axial fluid collection.No areas of brai n edema or evidence of midline shift. The paranasal sinuses and mastoids are clear. The calvarium is intact. IMPRESSION: No acute intracranial abnormality.
[2019-08-05] MEDS ORDERED: FOLIC ACID 1 MG TABLET ONE (16:39)
[2019-08-05] MEDS ORDERED: ASPIRIN 81 MG CHEWABLE TABLET ONE (16:39)
--- NOTE | 2019-08-05 19:06 | RAD REPORT ---
EXAM DESCRIPTION: MRI - Brain W/Wo Cont - 08/05/2019 6:43 pm CLINICAL HISTORY: speech/vision problem, CVA vs TIA Headache, drowsiness, CVA symptomology COMPARISON: MRA Head Wo Cont dated 08/05/2019; MRA Neck W/Wo Cont dated 08/05/2019 TECHNIQUE: Multi-sequence, multiplanar MR imaging of the brain was performed with contrast. FINDINGS: No intracranial hemorrhage, hydrocephalus, or extra-axial fluid collection. No edema or sh ift of midline structures. No intracranial mass. DWI is negative for acute CVA. The midline structures are normally formed. Mastoid air cells and paranasal sinuses are clear. Post-contrast images show no abnormal enhancement to suggest tumor or infection. IMPRESSION: Negative for acute CVA or other acute intracranial abnormality.
--- NOTE | 2019-08-05 19:08 | RAD REPORT ---
EXAM DESCRIPTION: MRI - MRA Head Wo Cont - 08/05/2019 6:30 pm CLINICAL HISTORY: speech/vision problem, CVA vs TIA CVA COMPARISON: Head Brain Wo Cont dated 08/05/2019 FINDINGS: 3D noncontrast [id number] MR angiography of the [place] was performed. No aneurysm, flow-limiting stenosis or vascular malformation is seen. Forward flow seen in codominant vertebral arteries. The visualized dural venous sinuses appear patent. IMPRESSION: No significant flow abnormality of the [place] is identified.
--- NOTE | 2019-08-05 19:15 | RAD REPORT ---
EXAM DESCRIPTION: MRI - MRA Neck W/Wo Cont - 08/05/2019 6:56 pm CLINICAL HISTORY: speech/vision problem, CVA vs TIA Headache, drowsiness, CVA symptomology COMPARISON: No comparisons FINDINGS: Contrast enhance 2D [id number] MR angiography of the neck vessels was performed. A left aortic arch is seen with normal branching pattern of the great vessels. Both subclavian arteri es and common carotid arteries are widely patent. No evidence of significant internal carotid artery stenosis. There is forward flow seen both vertebral arteries which appear codominant. IMPRESSION: No significant flow abnormality of the neck vessels.
[2019-08-05] MEDS ORDERED: ACETAMINOPHEN 500 MG TAB PO PRN (20:18)
[2019-08-05] MEDS ORDERED: ONDANSETRON 4 MG/2 ML VIAL IV PRN (20:18)
[2019-08-05 20:20] VITALS: BMI 25.0
[2019-08-05] MEDS ORDERED: ATORVASTATIN 20 MG TAB PO SCH (21:00)
[2019-08-05] MEDS: NA CHLORIDE 0.9% 1,000 ML IV SCH (21:30)
--- NOTE | 2019-08-05 23:16 | HP ---
Date of Admission: 08/05/2019 Consultants: Dr. Espino. Code Status: Full. Chief Complaint: Abnormal vision, speech and left-sided weakness. 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 Patient denies any facial drooping or seizure-type activity that was noticed by the family. Patient's symptoms were constant, moderate, progressively worsening. He did not seek medical care at that time. He got tired, went to sleep and on morning of admission, felt better. However, due to his continued decrease in his left terminal carman strength, he came into the ER. Patient states his blood pressure medications have been adjusted recently, was placed on a diuretic. Patient's workup revealed normal white blood cell count. He otherwise denies any fevers, chills, nausea, vomiting, headache, stated his blood pressure sometimes was 130s/99. Head CT scan did not show any acute changes. Doppler of the left upper extremity did not show any DVT. Patient was then referred for admission. When seen in the ER, he was awake, alert, oriented x3, not in any acute distress. Past Medical History: Rheumatoid arthritis, hypertension that was diagnosed 20 years ago, benign prostatic hyperplasia. Past Surgical History: Knee surgery x7 on the right. Allergies: TO LATEX. DENIES ANY ALLERGIES TO MEDICATIONS. Medications: The patient takes 40 mg of lisinopril and was recently started on diuretic. Does not know the name of it. Social History: Patient used to smoke very heavily in the past, quit smoking 2 years ago when he had heart trouble. Drinks alcohol occasionally. Denies any illicit drug use. Patient is , has children. Worked in [employer]. 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 Family History: Father had hypertension and colon cancer and multiple strokes, has . Mother has hypertension, ovarian cancer. Grandfather has prostate cancer. Review of Systems: Eleven point system reviewed, negative except as per HPI. Physical Examination: Vital signs: Temperature 98.9 heart rate 103 respirations 16 blood pressure 135/94 General: Awake, alert, oriented x3, not in any acute distress. HEENT: Normocephalic, atraumatic. PERRLA, EOMI. Moist mucous membranes. Oropharynx is clear. Neck: Supple. No JVD. Trachea midline. CV: S1, S2. Regular rate and rhythm. Peripheral pulses present. Respiratory: Moving air well bilaterally. No wheezing or stridor. No use of accessory muscles. Gastrointestinal: Abdomen is soft, nontender, nondistended. Positive bowel sounds. No guarding or rigidity. Extremities: No clubbing, cyanosis, or edema. No calf tenderness. Neuro: Cranial nerves 2 through 12 intact grossly. Patient's strength in bilateral lower extremities is 5/5, right upper extremity is 5/5, left upper extremity terminal carman strength is diminished. Speech is normal. No facial asymmetry. Skin: No rashes. Normal skin turgor. Psych: Mood is okay. Affect is full. Insight and judgment are good. Laboratory Data: Sodium 140, potassium 4.1, chloride is 109, CO2 of 24, BUN 18, creatinine 1.3, glucose 93, calcium 8.5, magnesium 2.3. WBC 5.2, H and H 16.3 and 48.7, platelets 218, neutrophils 78%. INR 0.93. Imaging Studies: Head CT scan shows no acute intracranial abnormality. Extremity Doppler shows no evidence of left upper extremity DVT. Assessment And Plan: 49-year-old male with 1. Abnormal speech, vision and left-sided weakness in the upper extremity, possible transient ischemic attack rule out cerebrovascular accident. Head CT scan is negative. We will obtain MRI stroke protocol. We will admit patient for further observation and consult Neurology. We will start on stroke guidelines with aspirin, statin. Lovenox for deep venous thrombosis prophylaxis. We will obtain carotid artery ultrasound and echocardiogram. Patient's risk factors are previous history of smoking and rnkxvtmtl-[id number]-[id number] blood pressure. Patient also has family history of cerebrovascular accident. 2. Essential hypertension, difficult to control. We will allow for permissive hypertension at this time. Pending MRI of the brain. 3. Patient had cavitary changes on the CT scan of his lung, possibly sarcoidosis, was seen by Pulmonology in 2018 and was to have a mediastinal biopsy. Patient has not reported any biopsy. We will clarify further. We will obtain chest x-ray. 4. Rheumatoid arthritis, stable. Patient not on any medications for his arthritis. 5. Deep venous thrombosis prophylaxis with Lovenox. PLAN: Admit patient to Med/Surg, place as observation. We will consult Neurology. Follow up with stroke workup. MARTIN Voice ID: [id number] LAURENCE
[2019-08-06 06:33] LABS: Albumin 3.2 g/dL (3.4-5.0)
[2019-08-06 06:35] LABS: Bilirubin Total 0.6 mg/dL (0.2-1.0); Protein, Total 6.4 g/dL (6.4-8.2)
[2019-08-06 07:10] LABS: Absolute Lymphocytes (CBC) 0.5 K/uL (0.7-4.9); Basophils % 1.1 % (0-1.3); Hematocrit 46.2 % (39.6-49.0); MPV 9.3 fL (7.6-11.3); RBC Red Blood Cell Count 5.09 M/uL (4.33-5.43)
--- NOTE | 2019-08-06 08:28 | RAD REPORT ---
EXAM DESCRIPTION: RAD - Chest Single View - 08/06/2019 6:53 am CLINICAL HISTORY: abnormal cxr 2018 w LAD Chest pain. COMPARISON: Chest Single View dated 02/19/2018; CHEST SINGLE VIEW dated 02/29/2012; CHEST SINGLE VIE W dated 02/13/2012; CHEST SINGLE VIEW dated 09/05/2010 FINDINGS: Portable technique limits examination quality. Bilateral pulmonary opacities are present, with ill-defined 1-2 centimeter left mid lung opacity note d which is new or progressive since comparative study. The heart is upper limit of normal in size. Fo llow-up CT chest would be recommended for further evaluation.
[2019-08-06 08:33] VITALS: O2SAT 97
--- NOTE | 2019-08-06 08:35 | RAD REPORT ---
EXAM DESCRIPTION: - CP - 08/06/2019 8:13 am CLINICAL HISTORY: CVA Headache, drowsiness COMPARISON: MRA Neck W/Wo Cont dated 08/05/2019 TECHNIQUE: Real-time sonographic evaluation of both carotid systems was performed. Doppler interroga tion was performed with waveform tracing bilaterally. FINDINGS: Normal high resistance waveforms are noted in both external carotid arteries. The common c arotid arteries and internal carotid arteries show normal low resistance waveforms. No significant plaque formation is seen. Peak systolic and end diastolic velocity values and the ICA/ CCA ratios are in the non-hemodynamically significant range. Antegrade flow seen in both vertebral arteries. IMPRESSION: No significant atherosclerotic changes noted. No evidence of a hemodynamically significant stenosis.
[2019-08-06] MEDS ORDERED: FOLIC ACID 1 MG TABLET PO SCH (09:00)
[2019-08-06] MEDS ORDERED: ENOXAPARIN 40 MG/0.4 ML SQ SCH (09:00)
[2019-08-06] MEDS ORDERED: ASPIRIN EC 81 MG TAB PO SCH (09:00)
[2019-08-06] MEDS: NA CHLORIDE 0.9% 1,000 ML IV SCH (10:25)
[2019-08-06 10:48] LABS: Blood Morphology Comment NOT SEEN (NOT SEEN); Platelet Estimate ADEQ; Urine White Blood Cell Casts OK
--- NOTE | 2019-08-06 11:51 | RAD REPORT ---
EXAM DESCRIPTION: CT - Thorax W/ Con CLINICAL HISTORY: Chest pain Abnormal CXRy COMPARISON: Chest Single View dated 08/06/2019; Chest Single View dated 02/19/2018; CHEST SINGLE VIEW dated 02/29/2012 FINDINGS: Ill-defined irregular spiculated parenchymal lung opacities are present in both lungs eman ating from both hilar regions. The findings are most significant in both upper lobes. Compared to dat or chest radiographs, the findings appear progressive. No pleural thickening or pleural effusion. No pneumothorax. Lymphadenopathy is present in the mediastinum and hilar regions including pretracheal lymphadenopathy measuring 15 mm, AP window lymphadenopathy measuring 17 mm and sub- carinal lymphadenopathy measurin g 28 mm. No concerning bony finding. No gross upper abdominal finding. All CT scans are performed using dose optimization technique as appropriate and may include automated exposure control or mA/KV adjustment according to patient size. IMPRESSION: Irregular spiculated pulmonary opacities are present bilaterally, greatest in the upper lobes, with mediastinal and hilar lymphadenopathy present.The findings appear moderately progressive since previous chest radiographs. Although nonspecific, recommend correlation for the possibility of sarcoidosis.
[2019-08-06 12:08] VITALS: BP 134/78; TEMP 97.3
--- NOTE | 2019-08-06 12:53 | EKG ---
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
--- NOTE | 2019-08-06 14:04 | ECHO ---
HEIGHT: 6 ft 0 in WEIGHT: 184 lb 6.4 oz DATE OF STUDY: 08/06/[address]: Gary Lombardi MD 2-DIMENSIONAL: YES M.MODE: YES DOPPLER: YES COLOR FLOW: YES TDS: NO PORTABLE: NO DEFINITY: NO BUBBLE STUDY: NO DIAGNOSIS: STROKE CARDIAC HISTORY: CATHERIZATION: NO SURGERY: NO PROSTHETIC VALVE: NO PACEMAKER: NO MEASUREMENTS (cm) DIASTOLIC (NORMALS) SYSTOLIC (NORMALS) IVSd 1.0 (0.6-1.2) LA Diam 3.7 (1.9-4.0) LVEF 51% LVIDd 5.4 (3.5-5.7) LVIDs 4.0 (2.0-3.5) %FS 26% LVPWd 1.0 (0.6-1.2) Ao Diam 2.9 (2.0-3.7) 2 DIMENSIONAL ASSESSMENT: RIGHT ATRIUM: NORMAL LEFT ATRIUM: NORMAL RIGHT VENTRICLE: NORMAL LEFT VENTRICLE: NORMAL TRICUSPID VALVE: NORMAL MITRAL VALVE: NORMAL PULMONIC VALVE: NORMAL AORTIC VALVE: NORMAL PERICARDIAL EFFUSION: NONE AORTIC ROOT: NORMAL LEFT VENTRICULAR WALL MOTION: NORMAL. DOPPLER/COLOR FLOW: NORMAL. COMMENTS: NORMAL 2D ECHO WITH DOPPLER. NO VEGETATION. NO THROMBUS. NO ATRIAL SEPTAL DEFECT. TECHNOLOGIST: SULLY SPRAGUE
--- NOTE | 2019-08-07 01:15 | DS ---
Date of Discharge: 08/06/2019 [employer] Director: Dr. Espino with Neurology. Discharge Diagnoses: 1. Transient ischemic attack, cerebrovascular accident ruled out. 2. Essential hypertension. 3. Sarcoidosis. Asymptomatic 4. Rheumatoid arthritis, stable. 5. Generalized anxiety on trazodone. Hospital Course: Patient is a 49-year-old male, history of rheumatoid arthritis, hypertension, BPH, and anxiety, comes in with abnormal vision, speech, and left-sided weakness. Patient was admitted to the hospital to rule out cerebrovascular accident. His symptoms improved. His head CT scan, MRI stroke protocol, as well as carotid artery ultrasound were all negative. Dr. Espino with Neurology was consulted. He recommended outpatient followup. The patient's symptoms resolved and this may have been TIA versus maybe medication related. The patient's blood pressure also improved. He does have [id number] blood pressure. His lipid panel showed elevated triglycerides and total cholesterol. Overall, patient did well. 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 He has seen Pulmonology in the past. No biopsies have done. He stated that he lost his insurance and was unable to continue followup. Repeat chest x-ray in this visit shows ill-defined 1-2 cm left mid lung opacity noted which is new or progressive since comparative study from February 2018. We will have patient follow up with Pulmonology as outpatient, may be related to sarcoidosis or other. This may also be lung cancer. Otherwise, he denies any hemoptysis or any B type symptoms. Patient was then cleared for discharge, sent home in a stable condition. Activity: As tolerated. Medications: As per medication reconciliation list. Followup: Follow up with primary care physician in 2-3 days. Follow up with neurologist, Dr. Espino in 2 weeks. Follow up with wrapper sheeter, Dr. Euceda in 2 weeks. Return to ER for worsening condition. Physical Examination: General: Awake, alert, oriented x3. No acute distress. CV: S1-S2. No murmurs. Respiratory: Moving air well bilaterally. No wheezing or stridor. Gastrointestinal: Abdomen is soft, nontender, nondistended. Positive bowel sounds. Extremities: No clubbing, cyanosis, or edema. Neurologic: Nonfocal. [facility] Advocate strength is normal bilaterally. SA/MODL Voice ID: [id number] Report ID: [id number] LAURENCE
--- NOTE | 2019-08-11 13:29 | EDPHYS ---
Physician Documentation [facility] Name: Percy Dorsey Age: 49 yrs Sex: Male : 1970 Arrival Date: 08/05/2019 Time: 14:21 Bed 6 Private MD: ED Physician Messi [facility] HPI: 08/04 15:20 This 49 yrs old Male presents to ER via Ambulatory with complaints of Vision rn Problem, Dizziness. 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 Onset: The symptoms/episode began/occurred yesterday. Associated signs and symptoms: Pertinent positives: headache, blurred vision, weakness, Pertinent negatives: fever. Severity of symptoms: At their worst the symptoms were moderate in the emergency department the symptoms have improved. The patient has not experienced similar symptoms in the past. Reports around 7PM last night, was on phone, told by girl was speaking "gibberish", saw halos in vision, and was dizzy, sudden onset with mild headache. Now no headache, and speech/vision resolved, but feels left arm heavy and slightly weaker than normal. . Historical: - Allergies: 14:31 Latex, Natural Rubber; iw 14:31 PENICILLINS; iw - Home Meds: 14:31 lisinopril 40 mg Oral tab 1 tab once daily [Active]; Trazodone Oral nightly [Active]; iw - PMHx: 14:31 Hypertension; iw - PSHx: 14:31 right knee; iw - Immunization history:: Adult Immunizations not up to date. - Social history:: Smoking status: Patient/guardian denies using tobacco, the patient reports quitting approximately 2 years ago. - Family history:: not pertinent. - Hospitalizations: : No recent hospitalization is reported. ROS: 15:20 Constitutional: Negative for fever, chills, and weight loss, Eyes: Negative for injury, rn pain, redness, and discharge, Cardiovascular: Negative for chest pain, palpitations, and edema, Respiratory: Negative for shortness of breath, cough, wheezing, and pleuritic chest pain, Abdomen/GI: Negative for abdominal pain, nausea, vomiting, diarrhea, and constipation, MS/Extremity: Negative for injury and deformity, Skin: Negative for injury, rash, and discoloration, Neuro: Negative for numbness, tingling, and seizure. Exam: 15:24 Constitutional: This is a well developed, well nourished patient who is awake, alert, rn and in no acute distress. Head/Face: Normocephalic, atraumatic. Eyes: Pupils equal round and reactive to light, extra-ocular motions intact. Lids and lashes normal. Conjunctiva and sclera are non-icteric and not injected. Cornea within normal limits. Periorbital areas with no swelling, redness, or edema. ENT: MMM Neck: Trachea midline, no thyromegaly or masses palpated, and no cervical lymphadenopathy. Supple, full range of motion without nuchal rigidity, or vertebral point tenderness. No Meningismus. Cardiovascular: Tachycardic, Irregular. No pulse deficits. Respiratory: No increased work of breathing, no retractions or nasal flaring. Abdomen/GI: Soft, non-tender Skin: Warm, dry MS/ Extremity: Pulses equal, no cyanosis. Neurovascular intact. Full, normal range of motion. Equal circumference. Neuro: Awake and alert, GCS 15, oriented to person, place, time, and situation. Cranial nerves II-XII grossly intact. 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 Sensory grossly intact. Cerebellar exam normal. 15:48 ECG was reviewed by the Attending Physician. rn Vital Signs: 14:26 BP 135 / 94; Pulse 103; Resp 16; Temp 98.9; Pulse Ox 97% ; Weight 84.37 kg; Height 6 iw ft. 0 in. (182.88 cm); Pain 0/10; 14:45 BP 125 / 98; Pulse 96; Resp 19 S; Pulse Ox 96% on R/A; Pain 7/10; jl7 16:26 BP 130 / 88; Pulse 90; Resp 20; Pulse Ox 99% ; jl7 19:00 BP 138 / 84; Pulse 89; Resp 15; Pulse Ox 98% on R/A; rv 19:59 BP 135 / 82; Pulse 93; Resp 14; Temp 98.5; Pulse Ox 97% on R/A; rv 14:26 Body Mass Index 25.23 (84.37 kg, 182.88 cm) iw NIH Stroke Scale Scores: 19:42 NIHSS Score: 0 ea MDM: 14:38 Patient medically screened. rn 16:29 Data reviewed: vital signs, nurses notes, lab test result(s), EKG, radiologic studies, rn CT scan, and as a result, I will admit patient. Counseling: I had a detailed discussion with the patient and/or guardian regarding: the historical points, exam findings, and any diagnostic results supporting the discharge/admit diagnosis, lab results, radiology results, the need for further work-up and treatment in the hospital. Response to treatment: the patient's symptoms have mildly improved after treatment, and as a result, I will admit patient. Admission orders: after a detailed discussion of the patient's condition and case, the admit orders are written by me. 08/04 14:54 Order name: Magnesium; Complete Time: 15:38 08/04 14:54 Order name: Basic Metabolic Panel; Complete Time: 15:38 08/04 14:54 Order name: CBC with Diff; Complete Time: 15:38 08/04 14:54 Order name: Protime (+inr); Complete Time: 15:38 08/04 14:54 Order name: Ptt, Activated; Complete Time: 15: 08/04 15:21 Order name: Glucose, Ancillary Testing; Complete Time: 15:38 [facility] 08/04 14:54 Order name: CT Head Brain wo Cont; Complete Time: 16:21 08/04 15:50 Order name: UPPER EXTREMITY VENOUS UNILATE; Complete Time: 16:21 [facility] 08/04 16:36 Order name: MRI Stroke Protocol 08/04 19:08 Order name: MRI [facility] 08/04 19:10 Order name: MRI [facility] 08/04 19:19 Order name: MRI [facility] 08/04 14:54 Order name: EKG; Complete Time: 14:55 08/04 14:54 Order name: Accucheck; Complete Time: 15:22 08/04 14:54 Order name: Cardiac monitoring; Complete Time: 15: 08/04 14:54 Order name: EKG - Nurse/Tech; Complete Time: 15: 08/04 14:54 Order name: IV Saline Lock; Complete Time: 15: 08/04 14:54 Order name: Labs collected and sent; Complete Time: 15: 08/04 14:54 Order name: NPO; Complete Time: 15: rn 08/04 14:54 Order name: O2 Per Protocol; Complete Time: 15: rn 08/04 14:54 Order name: O2 Sat Monitoring; Complete Time: 15: rn 08/04 14:54 Order name: Stroke Swallow Screen; Complete Time: 15: rn 08/04 17:14 Order name: NPO; Complete Time: 17:14 aa5 EC:48 Rate is 93 beats/min. Rhythm is irregular. QRS Arpin is Normal. RI interval is normal. rn QRS interval is normal. QT interval is normal. No Q waves. T waves are Normal. No ST changes noted. Clinical impression: Sinus rhythm with PVCs. Interpreted by me. Reviewed by me. Administered Medications: 15:22 Drug: NS 0.9% 1000 ml Route: IV; Rate: 1000 ml; Site: right forearm; jl7 16:27 Follow up: Response: No adverse reaction; IV Status: Completed infusion; IV Intake: jl7 1000ml 16:40 Drug: foLIC Acid 1 mg Route: PO; jl7 17:00 Follow up: Response: No adverse reaction jl7 16:40 Drug: Aspirin Chewable Tablet 324 mg Route: PO; jl7 17:00 Follow up: Response: No adverse reaction jl7 Disposition: 08/05/19 16:33 Hospitalization ordered by Gary Lombardi for Observation. Preliminary diagnosis are Weakness, Speech disturbances, not elsewhere classified, Transient cerebral ischemic attack, unspecified. - Bed requested for Telemetry/MedSurg (observation). - Status is Observation. ea - Condition is Stable. - Problem is new. - Symptoms have improved. NIH Stroke Scale - NIH Stroke Score Date: 08/05/2019 Time: 19:42 Total Score = 0 1a. Level of Consciousness (LOC) - 0(Alert) 1b. Level of Consciousness (LOC) (Year \\T\\ Age) - 0(Both) 1c. LOC Commands (Open \\T\\ Closes Eyes/Personal Computer Network Engineer) - 0(Both) 2. Best Gaze (Lateral Gaze Paresis) - 0(Normal) 3. Visual Field Loss - 0(No visual loss) 4. Facial Palsy - 0(Normal) 5a. Left Arm: Motor (10-second hold) - 0(No drift) 5b. Right Arm: Motor (10-second hold) - 0(No drift) 6a. Left Leg: Motor (5-second hold - always test supine) - 0(No drift) 6b. Right Leg: Motor (5-second hold - always test supine) - 0(No drift) 7. Limb Ataxia (finger/nose \\T\\ heel/zavaleta - test with eyes open) - 0(Absent) 8. Sensory Loss (pinprick arms/legs/face) - 0(Normal) 9. Best Language: Aphasia (description/naming/reading) - 0(No aphasia) 10. Dysarthria (speech clarity - read or repeat words) - 0(Normal) 11. Extinction and Inattention (visual/tactile/auditory/spatial/personal) - 0(No abnormality) Initials: ea Signatures: Dispatcher [employer] EDNV Galina Stanley, RN Maia Perrin RN Messi Chong MD MD rn Calderon, Audri, RN RN aa5 Danii Sahu, RN MARK jl7 Brigid Arreola RN RN ea Corrections: (The following items were deleted from the chart) 15:49 15:24 Extremity Venous [email or web address] ordered. [facility] EDMS 18:34 16:33 Hospitalization Ordered by Gary Lombardi MD for Observation. Preliminary dw diagnosis is Weakness; Speech disturbances, not elsewhere classified; Transient cerebral ischemic attack, unspecified. Bed requested for Telemetry/MedSurg (observation). Status is Observation. Condition is Stable. Problem is new. Symptoms have improved. rn 20:07 18:34 08/05/2019 16:33 Hospitalization Ordered by Gary Lombardi MD for ea Observation. Preliminary diagnosis is Weakness; Speech disturbances, not elsewhere classified; Transient cerebral ischemic attack, unspecified. Bed requested for Telemetry/MedSurg (observation). Status is Observation. Condition is Stable. Problem is new. Symptoms have improved. dw
--- NOTE | 2019-08-11 13:29 | ER ---
Nurse's Notes [facility] Name: Percy Dorsey Age: 49 yrs Sex: Male : 1970 Arrival Date: 08/05/2019 Time: 14:21 Bed 6 Private MD: Diagnosis: Weakness;Speech disturbances, not elsewhere classified;Transient cerebral ischemic attack, unspecified Presentation: 08/04 14:26 Chief complaint: Patient states: last night was on the phone and all of a sudden iw started seeing white dots, got sick to his stomach and got dizzy, the person on the phone said he wasn't making any sense, then felt like he was in a fog, today feels like he's not "here" feels foggy, the episode lasted a bout 2 hours last night, started at 7 pm last night, also was having trouble texting the correct words last night, denies weakness in extremities. Coronavirus screen: Proceed with normal triage. Patient denies a cough. Patient denies shortness of breath or difficulty breathing. Patient denies measured and/or subjective temperature greater than 100.4F prior to today's visit. Patient denies travel on a cruise ship or to a country the [facility] currently lists as an affected area. Patient denies contact with known and/or suspected case of COVID-19. Ebola Screen: Patient negative for fever greater than or equal to 101.5 degrees Fahrenheit, and additional compatible Ebola Virus Disease symptoms Patient denies exposure to infectious person. Patient denies travel to an Ebola-affected area in the 21 days before illness onset. No symptoms or risks identified at this time. Initial Sepsis Screen: Does the patient meet any 2 criteria? No. Patient's initial sepsis screen is negative. Does the patient have a suspected source of infection? No. Patient's initial sepsis screen is negative. Risk Assessment: Do you want to hurt yourself or someone else? Patient reports no desire to harm self or others. Onset of symptoms was August 04, 2019. : Method Of Arrival: Ambulatory iw 14: Acuity: GIACOMO 2 iw Historical: - Allergies: 14:31 Latex, Natural Rubber; iw 14:31 PENICILLINS; iw - Home Meds: 14:31 lisinopril 40 mg Oral tab 1 tab once daily [Active]; Trazodone Oral nightly [Active]; iw - PMHx: 14:31 Hypertension; iw - PSHx: 14:31 right knee; iw - Immunization history:: Adult Immunizations not up to date. - Social history:: Smoking status: Patient/guardian denies using tobacco, the patient reports quitting approximately 2 years ago. - Family history:: not pertinent. - Hospitalizations: : No recent hospitalization is reported. Screenin:45 The patient has not been NPO before screening. The patient is currently on the jl7 following diet: regular The patient is alert, able to follow commands. The patient does not exhibit slurred or garbled speech The patient is not exhibiting difficulty speaking. The patient does not exhibit difficulty understanding words. The patient is able to swallow own secretions with no drooling or need for suction. Patient tolerated one teaspoon of water. No drooling, immediate coughing, gurgling, or clearing of the throat was noted. The patient tolerated 90mL of water. No drooling, immediate coughing, gurgling, or clearing of the throat was noted. The patient passed the bedside swallow screening. Oral medications may be given as ordered. Contact Physician for further diet orders. Provider notified of bedside swallow screening results: Messi St MD. 15:00 Abuse screen: Denies threats or abuse. Denies injuries from another. Nutritional jl7 screening: No deficits noted. Tuberculosis screening: No symptoms or risk factors identified. Fall Risk IV access (20 points). Total Soni Fall Scale indicates No Risk (0-24 pts). Assessment: 14:45 General: Appears in no apparent distress. uncomfortable, Behavior is calm, cooperative, jl7 appropriate for age. Pain: Complains of pain in forehead, right taoism and left taoism Pain does not radiate. Pain currently is 6 out of 10 on a pain scale. Quality of pain is described as aching, dull, Pain began 1 day ago. Is intermittent. Neuro: Level of Consciousness is awake, alert, obeys commands, Oriented to person, place, time, situation, Teaching Assistant are weak on left Moves all extremities. Full function Gait is steady, Speech is normal, Facial symmetry appears normal, Pupils are PERRLA. Cardiovascular: Denies chest pain, Patient's skin is warm and dry. Respiratory: Airway is patent Respiratory effort is even, unlabored, Respiratory pattern is regular, symmetrical, Denies shortness of breath. GI: No signs and/or symptoms were reported involving the gastrointestinal system. : No signs and/or symptoms were reported regarding the genitourinary system. EENT: No signs and/or symptoms were reported regarding the EENT system. Derm: Skin is pink, warm \\T\\ dry. 16:00 Reassessment: Patient appears in no apparent distress at this time. Patient and/or jl7 family updated on plan of care and expected duration. Pain level reassessed. Patient is alert, oriented x 3, equal unlabored respirations, skin warm/dry/pink. Patient denies pain at this time. Patient states feeling better. 16:28 Reassessment: Dr. St at bedside discussing results and POC. [facility] 17:30 Reassessment: Patient appears in no apparent distress at this time. No changes from [facility] previously documented assessment. Patient and/or family updated on plan of care and expected duration. Pain level reassessed. Patient is alert, oriented x 3, equal unlabored respirations, skin warm/dry/pink. 19:09 Reassessment: Patient appears in no apparent distress at this time. pt back from MRI, sg pt reports " I need something to eat, cause I havent had anything to eat all day. Im to the point now where Id pay someone to get me something to eat. If I cant eat then Im just gonna sign myself out." pt to be admitted to [facility], awaiting nurse to take report. 19:19 Reassessment: pt on the call light again, states " I havent had anything to eat since sg yesterday at like 2 oclock, either someones going to bring me something to eat or Im going to check myself out.". 19:48 Reassessment: Patient and/or family updated on plan of care and expected duration. Pain ea level reassessed. Patient is alert, oriented x 3, equal unlabored respirations, skin warm/dry/pink. Report given to Mary FLORES. Vital Signs: 14:26 BP 135 / 94; Pulse 103; Resp 16; Temp 98.9; Pulse Ox 97% ; Weight 84.37 kg; Height 6 iw ft. 0 in. (182.88 cm); Pain 0/10; 14:45 BP 125 / 98; Pulse 96; Resp 19 S; Pulse Ox 96% on R/A; Pain 7/10; jl7 16:26 BP 130 / 88; Pulse 90; Resp 20; Pulse Ox 99% ; jl7 19:00 BP 138 / 84; Pulse 89; Resp 15; Pulse Ox 98% on R/A; rv 19:59 BP 135 / 82; Pulse 93; Resp 14; Temp 98.5; Pulse Ox 97% on R/A; rv 14:26 Body Mass Index 25.23 (84.37 kg, 182.88 cm) iw NIH Stroke Scale Scores: 19:42 NIHSS Score: 0 ea ED Course: 14:21 Patient arrived in ED. mr 14:30 Triage completed. iw 14:31 Arm band placed on. iw 14:[address] MD is Attending Physician. rn 14:43 Danii Sahu RN is Primary Nurse. jl7 14:45 Patient has correct armband on for positive identification. Bed in low position. Call jl7 light in reach. Side rails up X2. quality assurance monitor on. Pulse ox on. NIBP on. 15:10 Initial lab(s) drawn, by me, sent to lab. EKG done, by ED staff, reviewed by Messi St MD. Inserted saline lock: 20 gauge in right forearm, using aseptic technique. Blood collected. 15:51 UPPER EXTREMITY VENOUS UNILATE In Process Unspecified. EDMS 16:00 CT Head Brain wo Cont In Process Unspecified. EDMS 16:32 Gary Lombardi MD is Hospitalizing Provider. rn 19:42 No provider procedures requiring assistance completed. Patient admitted, IV remains in ea place. Administered Medications: 15:22 Drug: NS 0.9% 1000 ml Route: IV; Rate: 1000 ml; Site: right forearm; jl7 16:27 Follow up: Response: No adverse reaction; IV Status: Completed infusion; IV Intake: jl7 1000ml 16:40 Drug: foLIC Acid 1 mg Route: PO; jl7 17:00 Follow up: Response: No adverse reaction jl7 16:40 Drug: Aspirin Chewable Tablet 324 mg Route: PO; jl7 17:00 Follow up: Response: No adverse reaction jl7 Intake: 16:27 IV: 1000ml; Total: 1000ml. jl7 Outcome: 16:33 Decision to Hospitalize by Provider. rn 19:42 Admitted to Med/surg accompanied by tech, room 201, with chart, Report called to Mary ceballos RN 19:42 Condition: stable 19:42 Instructed on the need for admit. 20:07 Patient left the ED. lin NIH Stroke Scale - NIH Stroke Score Date: 08/05/2019 Time: 19:42 Total Score = 0 1a. Level of Consciousness (LOC) - 0(Alert) 1b. Level of Consciousness (LOC) (Year \\T\\ Age) - 0(Both) 1c. LOC Commands (Open \\T\\ Closes Eyes/Heavy Lift Rigger) - 0(Both) 2. Best Gaze (Lateral Gaze Paresis) - 0(Normal) 3. Visual Field Loss - 0(No visual loss) 4. Facial Palsy - 0(Normal) 5a. Left Arm: Motor (10-second hold) - 0(No drift) 5b. Right Arm: Motor (10-second hold) - 0(No drift) 6a. Left Leg: Motor (5-second hold - always test supine) - 0(No drift) 6b. Right Leg: Motor (5-second hold - always test supine) - 0(No drift) 7. Limb Ataxia (finger/nose \\T\\ heel/zavaleta - test with eyes open) - 0(Absent) 8. Sensory Loss (pinprick arms/legs/face) - 0(Normal) 9. Best Language: Aphasia (description/naming/reading) - 0(No aphasia) 10. Dysarthria (speech clarity - read or repeat words) - 0(Normal) 11. Extinction and Inattention (visual/tactile/auditory/spatial/personal) - 0(No abnormality) Initials: lin Signatures: Dispatcher [employer] Quinn Yip RN RN sg Rivera, Mary mr Maia Dhillon, RN Messi Chong MD MD rn Leal, Jahala, RN RN jl7 Brigid Arreola RN RN ea Vicente, Ronaldo RN RN rv Corrections: (The following items were deleted from the chart) 16:28 16:00 Reassessment: Dr. St at bedside discussing results and POC juan m jl7
== END 2019-08-06 13:00 | disposition home or self-care (01) ==
LOC: ER 14:18 → ERHOLD 16:49 → 2ND 19:51
PROVIDERS: ADMIT Family Medicine; ATTEND Family Medicine
DX: G45.9 Transient cerebral ischemic attack, unspecified (principal); I10 Essential (primary) hypertension; M06.9 Rheumatoid arthritis, unspecified; N40.0 Benign prostatic hyperplasia without lower urinary tract symptoms; D86.9 Sarcoidosis, unspecified; F41.1 Generalized anxiety disorder; Z87.891 Personal history of nicotine dependence
CPT/HCPCS: 36415; 70450; 70544; 70549; 70553; 71045; 71260; 80048; 80053; 80061; 82164; 82947; 83735; 85025; 85610; 85730; 92610; 93005; 93306; 93880; 93971; 94760; 96360; 99285; A9577; G0378; J1650; J7030; Q9967

== ENCOUNTER 2019-08-22 09:11 | Inpatient (IN) | payer SELFPAY ==
[2019-08-22 09:40] LABS: Absolute Lymphocytes (CBC) 0.5 K/uL (0.7-4.9); Hematocrit 49.1 % (39.6-49.0); Lymphocytes % 13.5 % (15.3-44.8); MPV 8.8 fL (7.6-11.3); RBC Red Blood Cell Count 5.45 M/uL (4.33-5.43)
[2019-08-22 09:46] LABS: Protime INR 0.91
[2019-08-22 09:56] LABS: ALT/SGPT 36 U/L (12-78); AST/SGOT 26 U/L (15-37); Alkaline Phosphatase 108 U/L (45-117); BUN Blood Urea Nitrogen 17 mg/dL (7-18); Bicarbonate 24 mmol/L (21-32); Bilirubin Direct 0.1 mg/dL (0-0.2); Bilirubin Total 0.6 mg/dL (0.2-1.0); Creatine Phosphokinase 222 U/L (39-308); Glucose Level 86 mg/dL (74-106); Lipase 122 U/L (73-393); Magnesium 2.2 mg/dL (1.8-2.4); Potassium 4.2 mmol/L (3.5-5.1); Protein, Total 7.7 g/dL (6.4-8.2); Sodium Level 139 mmol/L (136-145); Troponin (Emerg Dept Use Only) < 0.02 ng/mL (0.0-0.045)
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
[2019-08-22] MEDS ORDERED: KETOROLAC 30 MG/ML INJ ONE (11:28)
[2019-08-22] MEDS ORDERED: ALBUTEROL 2.5 MG/3 ML NEB SOL NEB PRN ×2 (12:37→16:00)
[2019-08-22] MEDS ORDERED: ACETAMINOPHEN 500 MG TAB PO PRN (12:37)
[2019-08-22] MEDS ORDERED: ONDANSETRON 4 MG/2 ML VIAL IV PRN (12:37)
[2019-08-22 12:44] VITALS: BMI 25.0
[2019-08-22] MEDS: NA CHLORIDE 0.9% 1,000 ML IV SCH ×2 (13:02→21:50)
[2019-08-22] MEDS: HYDROCODONE/APAP 5/325 MG TAB PO PRN ×3 (13:28→22:31)
[2019-08-22 15:03] LABS: Urine Appearance CLEAR; Urine Bilirubin NEGATIVE (NEG); Urine Blood 2+ (NEG); Urine Color YELLOW; Urine Glucose NEGATIVE (NEG); Urine Protein TRACE (NEG); Urine Specific Gravity >=1.030 (1.005-1.030)
[2019-08-22 15:22] LABS: Urine Microscopic Reflex ORDER UMIC
[2019-08-22 15:52] LABS: Urine Bacteria <20 /HPF (NONE SEEN); Urine Culture Reflex Order NOT NEEDED; Urine Mucus 1+ /HPF (NONE SEEN)
[2019-08-22] MEDS ORDERED: levETIRAcetam 1,000 MG in NA CHLORIDE 0.9% 100 ML IV ONE (17:15)
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
[2019-08-22] MEDS ORDERED: ATORVASTATIN 40 MG TAB PO SCH (21:00)
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
[2019-08-23] MEDS: MORPHINE 2 MG/ML SYR IV PRN ×2 (00:22→04:38)
[2019-08-23 05:15] LABS: Absolute Lymphocytes (CBC) 0.4 K/uL (0.7-4.9); Basophils % 0.8 % (0-1.3); Hematocrit 42.4 % (39.6-49.0); Lymphocytes % 7.6 % (15.3-44.8); MPV 9.1 fL (7.6-11.3); RBC Red Blood Cell Count 4.69 M/uL (4.33-5.43)
[2019-08-23 06:02] LABS: Albumin 3.2 g/dL (3.4-5.0); Bilirubin Total 0.6 mg/dL (0.2-1.0); Potassium 4.1 mmol/L (3.5-5.1); Protein, Total 6.2 g/dL (6.4-8.2)
[2019-08-23] MEDS: NA CHLORIDE 0.9% 1,000 ML IV SCH (08:37)
[2019-08-23] MEDS: HYDROCODONE/APAP 5/325 MG TAB PO PRN (08:48)
[2019-08-23] MEDS ORDERED: ENOXAPARIN 40 MG/0.4 ML SQ SCH (09:00)
[2019-08-23] MEDS ORDERED: ASPIRIN EC 81 MG TAB PO SCH (09:00)
[2019-08-23] MEDS ORDERED: levETIRAcetam 500 MG TAB PO SCH (09:00)
[2019-08-23 09:14] VITALS: BP 128/65; TEMP 98.2
[2019-08-23 09:19] VITALS: O2SAT 94
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
== END 2019-08-23 11:02 | disposition home or self-care (01) | DRG 101 ==
LOC: ER 09:11 → ERHOLD 11:01 → 2ND 12:13 → OBSVTOIN 08-23 08:18
PROVIDERS: ADMIT Family Medicine; ATTEND Family Medicine
DX: G40.209 Localization-related (focal) (partial) symptomatic epilepsy and epileptic syndromes with complex partial seizures, not intractable, without status epilepticus (principal); M06.9 Rheumatoid arthritis, unspecified; I10 Essential (primary) hypertension; E78.5 Hyperlipidemia, unspecified; N40.0 Benign prostatic hyperplasia without lower urinary tract symptoms; Z20.828 Contact with and (suspected) exposure to other viral communicable diseases; Z87.09 Personal history of other diseases of the respiratory system; Z91.040 Latex allergy status; Z88.0 Allergy status to penicillin; Z91.09 Other allergy status, other than to drugs and biological substances; Z87.891 Personal history of nicotine dependence; Z86.73 Personal history of transient ischemic attack (TIA), and cerebral infarction without residual deficits
CPT/HCPCS: 36415; 70450; 71260; 72125; 74177; 80048; 80053; 80076; 81003; 81015; 82550; 82553; 82565; 83690; 83735; 84484; 85025; 85610; 85730; 86850; 86900; 86901; 93005; 94760; 96374; 97112; 97116; 97161; 99285; G0378; J1650; J1953; J2270; J7030; Q9967; U0002